=== PATIENT | female | born 1950 | race Caucasian/White ===

== ENCOUNTER 2023-10-12 09:47 | Day surgery (SDC) | payer OTHER ==
[2023-10-10 15:42] VITALS: BMI 18.5
[2023-10-12 10:20] VITALS: BP 148/80; PULSE 98; RESP 19; TEMP 98
== END 2023-10-12 11:15 | disposition home or self-care (01) ==
LOC: FASU-ENDO 09:47
PROVIDERS: ATTEND Internal Medicine Gastroenterology
PROC: 0DJD8ZZ Inspection of Lower Intestinal Tract, Via Natural or Artificial Opening Endoscopic (ICD-10-PCS; principal; 2023-10-12)
DX: Z53.8 Procedure and treatment not carried out for other reasons (principal); Z12.11 Encounter for screening for malignant neoplasm of colon
CPT/HCPCS: 36415; 82010; 82962

== ENCOUNTER 2023-11-02 09:49 | Day surgery (SDC) | payer OTHER ==
[2023-11-01 09:57] VITALS: BMI 18.5
[2023-11-02 10:15] VITALS: RESP 19
[2023-11-02 13:15] VITALS: TEMP 98
[2023-11-02 13:17] VITALS: BP 124/78; PULSE 65
== END 2023-11-02 13:50 | disposition home or self-care (01) ==
LOC: FASU-ENDO 09:49
PROVIDERS: ATTEND Internal Medicine Gastroenterology
PROC: 0DJD8ZZ Inspection of Lower Intestinal Tract, Via Natural or Artificial Opening Endoscopic (ICD-10-PCS; principal; 2023-11-02 12:14)
DX: Z12.11 Encounter for screening for malignant neoplasm of colon (principal); K64.1 Second degree hemorrhoids; K63.89 Other specified diseases of intestine; R19.5 Other fecal abnormalities